=== PATIENT | male | born 1960 | race Caucasian/White ===

== ENCOUNTER 2016-12-03 19:44 | Emergency (ER) ==
[2016-12-03 19:48] VITALS: BP 155/81; TEMP 96.9; BMI 28.8
--- NOTE | 2016-12-03 19:58 | ED.PDOC ---
General ED Provider: Dr. TIFFANY DIAMOND Chief Complaint: Non-specific Complaint Stated Complaint: Patient been working out side, started with rash, itching all over upper extremities and trunk. Time Seen by Physician: 19:55 Mode of Arrival: Walk-In Information Source: Patient Nursing and Triage Documentation Reviewed and Agree: Yes Skin Complaint Exam - Skin Rash/Itching Complaint/Exam Symptoms Are: Still present Initial Severity: Mild Current Severity: Moderate Potential Exposures: Reports: Plants Aggravating: Reports: None Alleviating: Reports: None Associated Signs and Symptoms: Denies: Difficulty breathing, Fever, Chills Skin Findings: Present: Lesions Differential Diagnoses: Contact Dermatitis Review of Systems - Review Of Systems Constitutional: Reports: No symptoms Eyes: Reports: No symptoms Ears, Nose, Mouth, Throat: Reports: No symptoms Respiratory: Reports: No symptoms Cardiac: Reports: No symptoms GI: Reports: No symptoms : Reports: No symptoms Musculoskeletal: Reports: No symptoms Skin: Reports: No symptoms Neurological: Reports: No symptoms Endocrine: Reports: No symptoms Hematologic/Lymphatic: Reports: No symptoms All Other Systems: Reviewed and Negative Past Medical History - Past Medical History Previously Healthy: Yes Endocrine: Reports: None Cardiovascular: Reports: None Respiratory: Reports: None Hematological: Reports: None Gastrointestinal: Reports: None Genitourinary: Reports: None Neuro/Psych: Reports: None Musculoskeletal: Reports: None Cancer: Reports: None - Surgical History General Surgical History: Reports: None - Family History Family History: Reports: None - Social History Smoking Status: Former smoker Hx Substance Use: No Alcohol Screening: None - Immunizations Tetanus Shot up to Date: Yes Physical Exam - Physical Exam Appearance: Well-appearing, No pain distress, Well-nourished Eyes: ОЛЕГ, EOMI, Conjunctiva clear ENT: Ears normal, Nose normal, Oropharynx normal Respiratory: Airway patent, Breath sounds clear, Breath sounds equal, Respirations nonlabored Cardiovascular: RRR, Pulses normal, No rub, No murmur GI/: Soft, Nontender, No masses, Bowel sounds normal, No Organomegaly Musculoskeletal: Normal strength, ROM intact, No edema, No calf tenderness Skin: Warm, Dry, Normal color Neurological: Sensation intact, Motor intact, Reflexes intact, Cranial nerves intact, Alert, Oriented Psychiatric: Affect appropriate, Mood appropriate Critical Care Note - Critical Care Note Total Time (mins): 0 Course - Course Vital Signs: Temp Pulse Resp BP Pulse Ox 10/13/17 19:45 96.9 F L 98 H 16 155/81 H 98 Departure - Departure Time of Disposition: 20:03 Disposition: HOME SELF-CARE Discharge Problem: Contact dermatitis Qualifiers: Contact dermatitis type: allergic Contact dermatitis trigger: unspecified trigger Qualified Code(s): L23.9 - Allergic contact dermatitis, unspecified cause Instructions: Contact Dermatitis (ED) Condition: Good Pt referred to PMD for follow-up: Yes Additional Instructions: Can use calmine lotion. it can spread to other areas, hand hygiene Prescriptions: Diphenhydramine HCl [Benadryl] 25 mg PO Q6H #14 capsule Prednisone 10 mg PO BIDWM #14 tablet Allergies/Adverse Reactions: Allergies No Known Allergies Allergy (Unverified 12/03/16 19:48) Home Medications: Ambulatory Orders Diphenhydramine HCl [Benadryl] 25 mg PO Q6H #14 capsule 12/03/16 Prednisone 10 mg PO BIDWM #14 tablet 12/03/16 Disposition Discussed With: Patient
[2016-12-03] MEDS: DECADRON 4 MG/ML SDV IM STA (20:07)
== END 2016-12-03 20:15 | disposition home or self-care (01) ==
LOC: ED 19:44
DX: L23.9 Allergic contact dermatitis, unspecified cause (principal)
CPT/HCPCS: 96372; 99282

== ENCOUNTER 2018-03-03 12:05 | Outpatient (CLI) | payer OTHER | END 2018-03-03 12:06 | disposition home or self-care (01) | LOC: RHC-LAB 12:05 | PROVIDERS: ATTEND Nurse Practitioner Family | DX: E66.9 Obesity, unspecified (principal); Z72.0 Tobacco use; Z12.5 Encounter for screening for malignant neoplasm of prostate | CPT/HCPCS: 36415; 80053; 80061; 85025 ==

== ENCOUNTER 2018-04-13 08:02 | Outpatient (CLI) | payer OTHER | END 2018-04-13 08:03 | disposition home or self-care (01) | LOC: RHC-LAB 08:02 | PROVIDERS: ATTEND Nurse Practitioner Family | DX: E78.5 Hyperlipidemia, unspecified (principal) | CPT/HCPCS: 36415; 80053; 80061 ==

== ENCOUNTER 2018-05-14 14:51 | Emergency (ER) ==
[2018-05-14 14:58] VITALS: BP 145/75; TEMP 99.2; BMI 30.2
[2018-05-14] MEDS ORDERED: PHENERGAN 25 MG/ML VIAL IM STA (15:00)
[2018-05-14] MEDS ORDERED: MORPHINE 4 MG/ML SYRINGE IM STA (15:00)
[2018-05-14] MEDS ORDERED: TORADOL IM STA (15:00)
--- NOTE | 2018-05-14 16:15 | CT ---
EXAM: Helical CT of the left knee without contrast. Coronal sagittal reformats were performed. HISTORY: Knee injury, patient porch prior femur fracture, fall COMPARISON: None FINDINGS: There is no acute fracture or dislocation. Mild medial compartment joint space narrowing i s seen. Moderate patellofemoral compartment joint space narrowing is seen. Tiny tricompartmental kn ee osteophytosis is seen. A small knee joint effusion is seen. No evidence of Franklin's cyst is seen. No evidence of focal subcutaneous fluid collection punctate hyperdensities are seen within the late ral left thigh region which may represent postoperative changes. The PCL appears intact. ACL fibers appear intact. The quadriceps and patellar tendons appear grossly intact. IMPRESSION: No acute osseous abnormality of the knee. Mild to moderate left knee osteoarthritis. Small knee joint effusion. Questionable prior operative changes of the lateral left thigh.
--- NOTE | 2018-05-14 16:22 | ED.PDOC ---
General ED Provider: Dr. PRIYA ALMENDAREZ-ER Chief Complaint: Knee Pain/Injury Stated Complaint: i twisted my knee while running yesterday Time Seen by Physician: 14:55 Mode of Arrival: Wheelchair Information Source: Patient Exam Limitations: No limitations Primary Care Provider: STONEY CAAL Nursing and Triage Documentation Reviewed and Agree: Yes Does patient meet sepsis criteria?: No System Inflammatory Response Syndrome: Not Applicable Sepsis Protocol: For patient's 13 years and over: Temp is 96.8 and below OR 101 and greater Pulse >90 BPM Resp >20/minute Acutely Altered Mental Status Are patient's symptoms suggestive of a new infection, such as: -Pneumonia -Skin, Soft Tissue -Endocarditis -UTI -Bone, Joint Infection -Implantable Device -Acute Abdominal Infection -Wound Infection -Meningitis -Blood Stream Catheter Infection -Unknown Musculoskeletal Complaint Exam - Knee Pain Complaint/Exam Mechanism of Injury: Reports: Trauma (24 hrs) Onset/Duration: 24 hrs Symptoms Are: Still present Onset of Pain: Reports: Immediate Initial Severity: Mild Current Severity: Moderate Location: Reports: Discrete Character: Reports: Dull, Aching, Stiffness Aggravating: Reports: Movement, Weight bearing, Prolonged standing Associated Signs and Symptoms: Reports: Swelling Able to Bear Weight: No Septic Arthritis Risk Factors: Reports: None Gout Risk Factors: Reports: None Knee Findings: Present: Swelling, Tenderness, Limited range of motion Tenderness: Present: Joint Alex Test Positive: No Inge Test Positive: No Limited Range of Motion: Present: Flexion, Extension Differential Diagnoses: Internal Derangement, Sprain, Strain Review of Systems - Review Of Systems Constitutional: Reports: No symptoms Eyes: Reports: No symptoms Ears, Nose, Mouth, Throat: Reports: No symptoms Respiratory: Reports: No symptoms Cardiac: Reports: No symptoms GI: Reports: No symptoms : Reports: No symptoms Musculoskeletal: Reports: Joint pain, Joint swelling Skin: Reports: No symptoms Neurological: Reports: No symptoms Endocrine: Reports: No symptoms Hematologic/Lymphatic: Reports: No symptoms All Other Systems: Reviewed and Negative Past Medical History - Past Medical History Previously Healthy: Yes Endocrine: Reports: None Cardiovascular: Reports: None Respiratory: Reports: None Hematological: Reports: None Gastrointestinal: Reports: None Genitourinary: Reports: None Neuro/Psych: Reports: None Musculoskeletal: Reports: None Cancer: Reports: None - Surgical History General Surgical History: Reports: None - Family History Family History: Reports: None - Social History Smoking Status: Current every day smoker, Heavy tobacco smoker Hx Substance Use: No Alcohol Screening: None Physical Exam - Physical Exam Appearance: Well-appearing, No pain distress, Well-nourished Eyes: ОЛЕГ ENT: Ears normal, Nose normal, Oropharynx normal Neck: Supple Respiratory: Airway patent Cardiovascular: RRR, Pulses normal, No rub, No murmur GI/: Soft, Nontender, No masses, Bowel sounds normal, No Organomegaly Musculoskeletal: Limited ROM Skin: Warm, Dry, Normal color Neurological: Sensation intact, Motor intact, Reflexes intact, Cranial nerves intact, Alert, Oriented Psychiatric: Affect appropriate, Mood appropriate Interpretation - Radiology Interpretation Radiology Interpretation By: Radiologist Radiology Results: Positive Exam Interpreted: CT Scan Critical Care Note - Critical Care Note Total Time (mins): 0 Course - Course Orders, Labs, Meds: Orders Category Date Time Status CRUTCHES [ED CRUTCHES] .ONCE EMERGENCY 05/14/18 16:19 Ordered Knee immobilizer [ED SPLINT APPLICATION] .ONCE EMERGENCY 05/14/18 16:19 Ordered Ketorolac Tromethamine [Toradol] MEDS 05/14/18 15:00 Discontinued 60 mg IM ONCE STA Morphine Sulfate [Morphine 4 mg/ml Syringe] MEDS 05/14/18 15:00 Discontinued 4 mg IM ONCE STA Promethazine HCl [Phenergan 25 mg/ml Vial] MEDS 05/14/18 15:00 Discontinued 25 mg IM ONCE STA CT KNEE LEFT WITHOUT CONTRAST Stat RADS 05/14/18 15:01 Completed Medications Discontinued Medications Generic Name Dose Route Start Last Admin Trade Name Freq PRN Reason Stop Dose Admin Ketorolac Tromethamine 60 mg 05/14/18 15:00 05/14/18 15:10 Toradol IM 05/14/18 15:01 60 mg ONCE STA Administration Morphine Sulfate 4 mg 05/14/18 15:00 05/14/18 15:09 Morphine 4 Mg/Ml Syringe IM 05/14/18 15:01 4 mg ONCE STA Administration Promethazine HCl 25 mg 05/14/18 15:00 05/14/18 15:09 Phenergan 25 Mg/Ml Vial IM 05/14/18 15:01 25 mg ONCE STA Administration Vital Signs: Temp Pulse Resp BP Pulse Ox 05/14/18 14:52 99.2 F 110 H 16 145/75 H 98 Departure - Departure Time of Disposition: 16:22 Disposition: HOME SELF-CARE Discharge Problem: Injury of knee Instructions: Knee Sprain (ED) Condition: Good Pt referred to PMD for follow-up: Yes IPMP verified?: No Additional Instructions: stay in immobilizer---crutches----norco 7.5mg q 4hrs prn pain #12---f/u with pcp ---consider MRI of the knee or ortho referral Allergies/Adverse Reactions: Allergies No Known Allergies Allergy (Verified 05/14/18 14:58) Home Medications: Ambulatory Orders 1 [No Reported Medications] 05/14/18 Disposition Discussed With: Patient
== END 2018-05-14 16:32 | disposition home or self-care (01) ==
LOC: ED 14:51
DX: S89.92XA Unspecified injury of left lower leg, initial encounter (principal); F17.210 Nicotine dependence, cigarettes, uncomplicated
CPT/HCPCS: 96372; 99283

== ENCOUNTER 2018-05-18 10:58 | Outpatient (CLI) ==
--- NOTE | 2018-05-18 14:22 | MRI ---
EXAM: MRI left knee without contrast. HISTORY: Fall a few days ago. 05/14/2018. CT 05/14/2018 with no acute fracture reported. Mild to moderate left knee osteoarthrosis. Left knee effusion.. TECHNIQUE: Using a local extremity coil on a high field strength magnet multiplanar multisequence ma gnet resonance imaging performed of the left knee without intravenous or intra-articular gadolinium c ontrast.. COMPARISON: CT left knee 05/14/2018. FINDINGS: Within the medial compartment the medial meniscus is intact without discrete surfacing men iscal tear. The medial compartment cartilage congruent without focal underlying subchondral edema. Productive osteophyte formation. Within the lateral compartment the lateral meniscus is intact without discrete surfacing meniscal tea r. The lateral compartment cartilage shows a 8 mm area of chondrosis/cartilage ulceration with fissu ring over the posterior medial weightbearing lateral tibial plateau. Underlying extending laterally is a transverse dominant intra-articular fracture posterior lateral tibial plateau. This shows exten tereza to the proximal left tibiofibular joint as well. Associated bone marrow edema/contusion. Other luna no definitive depression or incongruity. Confluent subchondral bone marrow edema/contusion with nondisplaced fracture over the anterior more central lateral tibial plateau. Productive osteophyte formation. Within the patellofemoral compartment the patella seated marked patellar chondrosis/chondromalacia pa tella with generalized cartilage attenuation/ulceration. Corresponding disease over the trochlear gr oove. Productive osteophyte formation. Small left effusion. No large osteochondral loose bodies. Intact ACL and PCL ligamentous fibers joana wing normal orientation. The extensor mechanism is intact. The medial collateral ligament as well a s lateral collateral ligament complex and posterolateral corner intact. Some superficial and deep so ft tissue edema posteriorly. IMPRESSION: Complex predominately transverse intra-articular fracture posterior weightbearing latera l tibial plateau with associated bone marrow edema/contusion. Confluent subchondral bone marrow edema/contusion with nondisplaced fracture over the anterior more c entral lateral tibial plateau. Changes of tricompartmental osteoarthrosis. Marked patellar chondrosis/chondromalacia patella. Smal l left knee effusion. Intact cruciate and collateral ligaments. Superficial and deep soft tissue edema posteriorly. No discrete surfacing meniscal tear identified.
== END 2018-05-18 10:59 | disposition home or self-care (01) ==
LOC: RAD 10:58
PROVIDERS: ATTEND Nurse Practitioner Family
DX: S89.92XD Unspecified injury of left lower leg, subsequent encounter (principal)

== ENCOUNTER 2018-08-09 09:28 | Outpatient (CLI) | END 2018-08-09 09:29 | disposition home or self-care (01) | LOC: RHC-LAB 09:28 | PROVIDERS: ATTEND Nurse Practitioner Family | DX: E78.5 Hyperlipidemia, unspecified (principal) | CPT/HCPCS: 36415; 80053; 80061 ==